=== PATIENT | female | born 1990 | race Caucasian/White ===

== ENCOUNTER → 2017-04-14 | Outpatient (CLI) | payer OTHER ==
--- NOTE | 2017-04-14 17:35 | DIAGNOSTIC IMAGING REPORT ---
L FOOT MIN 3 VIEWS ROUTINE CLINICAL HISTORY: Left foot pain. COMPARISON: None. DISCUSSION: The bony mineralization is normal. No fractures or subluxations are visualized. There are no erosive or destructive changes. IMPRESSION: Unremarkable conventional radiographic evaluation of the left foot. Electronically signed by: Stvee Peng M.D. 04/14/2017 5:33 PM Dictated Date/Time: 04/14/2017 5:33 PM
== END | disposition home or self-care (01) ==
LOC: C.RAD 17:02
PROVIDERS: ATTEND Student in an Organized Health Care Education/Training Program
DX: M79.672 Pain in left foot (principal)

== ENCOUNTER → 2017-07-07 | Outpatient (CLI) | payer OTHER | END | disposition home or self-care (01) | LOC: C.PAPS 14:09 | PROVIDERS: ATTEND Physician Assistant | DX: Z01.419 Encounter for gynecological examination (general) (routine) without abnormal findings (principal) ==

== ENCOUNTER 2023-01-12 01:56 | Inpatient (IN) ==
[2023-01-12] MEDS ORDERED: ONDANSETRON INJ 2 MG/ML 2 ML VIAL IV PRN ×2 (03:18→10:26)
[2023-01-12] MEDS: LACTATED RINGER'S 1,000 ML IV PRN ×3 (03:45→14:34)
[2023-01-12] MEDS ORDERED: LIDOCAINE 1% LOCAL 20 ML VIAL INFIL PRN (07:58)
[2023-01-12] MEDS ORDERED: OXYTOCIN 30 UNITS/500 ML BAG IV PRN ×3 (07:58→18:33)
[2023-01-12 08:34] LABS: Hematocrit (blood only) 32.8 % (37.0-47.0); Hemoglobin 11.4 g/dl (12.0-16.0); Mean Corpuscular Hemoglobin 31.1 pg (25.0-34.0); Mean Corpuscular Hgb Conc 34.8 g/dL (32.0-36.0); Mean Corpuscular Volume 89.4 fL (80.0-100.0); Mean Platelet Volume 10.5 fL (9.4-12.4); Platelet Count 177 K/uL (130-400); RDW Coefficient of Variation 13.5 % (11.5-14.5); RDW Standard Deviation 44.5 fL (36.4-46.3); Red Blood Count 3.67 M/uL (4.20-5.40); White Blood Count 12.18 K/ul (4.8-10.8)
--- NOTE | 2023-01-12 09:25 | Labor Progress Brief Note ---
Date of Service January 12, 2023 Assessment & Plan (1) : Plan: Met pt and family Reviewed PMH, PSH. PNC with pt FHR; CAT1 Ctx. Q 7min VE by Nurse /-2 As per nurse, pt tolerated pelvic exam poorly Plan Epidural analgesia labor augmentation AROM Pt agrees with Plan Results & Data Vital Signs (Past 12 Hours) Vital Signs Temp Pulse Resp BP 01/12/23 07:15 36.7 C 18 01/12/23 02:37 37 C 103 H 24 117/74 01/12/23 07:08 100 H 01/12/23 07:08 114/72 01/12/23 02:14 37.0 C 103 H 24 117/74
[2023-01-12] MEDS ORDERED: BUPIVACAINE 0.25% PF 30 ML VIAL ONE (09:26)
[2023-01-12] MEDS ORDERED: ePHEDrine sulfate 50 MG/ML AMP ONE (09:26)
[2023-01-12] MEDS ORDERED: fentaNYL citrate PF 100 MCG/2 ML VIAL ONE (09:26)
[2023-01-12] MEDS ORDERED: SODIUM CHLORIDE 0.9% PF INJ 10 ML VIAL ONE (09:26)
[2023-01-12] MEDS ORDERED: fentaNYL 2MCG/ML ROPIVACAINE 1.25MG/ML 100 ML BAG EPI ONE (09:27)
[2023-01-12] MEDS ORDERED: LIDOCAINE 2%/EPINEPHRINE 1:200,000 20 ML PF ONE (09:27)
--- NOTE | 2023-01-12 09:55 | Anesthesiology Consultation ---
Date of Service January 12, 2023 Assessment & Plan Chart Review Chart Review: Acceptable Risk for Labor Epidural Consults Requested none ASA ASA2 Proposed Anesthesia Anesthesia Type: Labor Epidural Risk / Benefits Reviewed With: PT / POA / Parent / Guardian, Accepts Plan and Informed Consent Obtained History Height/Weight Height: 5 ft 2 in Weight: 63.957 kg Allergies Allergy/AdvReac Type Severity Reaction Status Date / Time amoxicillin [From Augmentin] AdvReac Intermediate NAUSEA/VOMI Verified 08/01/21 16:13 TING clavulanic acid AdvReac Intermediate NAUSEA/VOMI Verified 08/01/21 16:13 [From Augmentin] TING Medications Home Medications Medication Instructions Recorded Confirmed Last Taken doxylamine succinate 25 mg tablet 25 mg PO HS PRN Sleep 12/19/22 12/19/22 12/18/22 (Unisom (doxylamine)) famotidine 20 mg tablet (Pepcid) 20 mg PO DAILY 12/19/22 01/12/23 01/11/23 2200 vits no.124-ferrous fum 1 tab PO DAILY 12/19/22 01/12/23 01/05/23 08:00 27 mg iron-folic acid 800 mcg tablet ( Vitamin) Iron (ferrous sulfate) 01/12/23 01/05/23 1400 Active Medications Generic Name Dose Route Start Last Admin Trade Name Freq PRN Reason Stop Dose Admin Lactated Ringer's 1,000 mls @ 125 mls/hr 01/12/23 03:18 01/12/23 09:47 Lr IV 02/11/23 03:17 999 mls/hr .Q8H PRN Administration L&D Protocol Protocol Past Medical History Medical History Anemia Migraine with aura Ocular migarines - haven't had any issues in years Raynaud disease Vasovagal syncope Patient has had 3 episode where she has passed out. Exercise / Class Metabolic Activity II 4-5 Yardwork/Stairs/Walk up hill Past Family History Family History Father Hypertension Mother Hypothyroid Grandmother (Paternal) Breast cancer Denies family history of Ovarian cancer Prostate cancer Myocardial infarction Colorectal cancer Past Surgical History Surgical History H/O hernia repair As a baby [place] teeth removed Past Anesthesia History No Hx of Anesthesia Complications and No Family Hx of Anesthesia Complications History of PONV No Hx of PONV and No Hx of Motion Sickness Social History Smoking Status: Never smoker Do You Dip or Chew Tobacco: No Hx Alcohol Use: Yes Hx Substance Use: No substance use type: does not use Physical Exam Vital Signs Last Vital Signs Temp 98.1 F 01/12/23 07:15 Pulse 93 H 01/12/23 09:49 Resp 18 01/12/23 07:15 BP 114/72 01/12/23 07:08 Pulse Ox 100 01/12/23 09:49 ENMT Mouth: no dentition abnormality Thyromental Distance: > or= 3.5 Finger Breadths Mallampati Class: II Neck normal visual inspection Respiratory normal respiratory effort Auscultation: lungs clear to auscultation bilaterally Cardiovascular Rate/Rhythm: regular rate and regular rhythm Testing Laboratory Results 01/12/23 08:12
[2023-01-12] MEDS ORDERED: fentaNYL citrate PF 100 MCG/2 ML VIAL EPI PRN (10:26)
[2023-01-12] MEDS ORDERED: SODIUM CHLORIDE 0.9% PF INJ 10 ML VIAL EPI STA (10:26)
[2023-01-12] MEDS ORDERED: diphenhydrAMINE 50 MG/ML VIAL IV PRN (10:26)
[2023-01-12] MEDS ORDERED: fentaNYL 2MCG/ML ROPIVACAINE 1.25MG/ML 100 ML BAG EPI PRN (10:26)
[2023-01-12] MEDS ORDERED: SODIUM CHLORIDE 0.9% PF INJ 10 ML VIAL EPI PRN (10:26)
[2023-01-12] MEDS ORDERED: BUPIVACAINE 0.25% PF 30 ML VIAL EPI PRN (10:26)
[2023-01-12] MEDS ORDERED: NALOXONE HCL 1 MG in SODIUM CHLORIDE 0.9% 1000ML 1,000 ML IV PRN (10:26)
[2023-01-12] MEDS ORDERED: BUPIVACAINE 0.25% PF 30 ML VIAL EPI STA (10:26)
[2023-01-12] MEDS ORDERED: NALBUPHINE HCL INJ 10 MG/ML AMP IV PRN (10:26)
[2023-01-12] MEDS ORDERED: NALOXONE HCL 0.4 MG/1 ML VIAL/CARP IV PRN (10:26)
[2023-01-12] MEDS ORDERED: LIDOCAINE 2%/EPINEPHRINE 1:200,000 20 ML PF EPI STA (10:26)
[2023-01-12] MEDS ORDERED: ROPIVACAINE 0.5% PF 5 MG/ML 20 ML VIAL EPI PRN (10:26)
[2023-01-12] MEDS ORDERED: ePHEDrine sulfate 50 MG/ML AMP IV PRN (10:26)
[2023-01-12] MEDS ORDERED: fentaNYL citrate PF 100 MCG/2 ML VIAL EPI STA (10:26)
[2023-01-12] MEDS ORDERED: LIDOCAINE 2% MPF LOCAL 5 ML VIAL EPI PRN (10:26)
[2023-01-12] MEDS ORDERED: CALCIUM CARBONATE 500 MG CHEWABLE TAB PO PRN (13:49)
[2023-01-12] MEDS ORDERED: CALCIUM CARBONATE 500 MG CHEWABLE TAB ONE (13:51)
[2023-01-12] MEDS ORDERED: BENZOCAINE 20% AER SPR 82.5 GM CAN EXT PRN (18:33)
[2023-01-12] MEDS ORDERED: HYDROCORTISONE ACETATE 25 MG SUPP PR PRN (18:33)
[2023-01-12] MEDS ORDERED: DIPHTHERIA/TETANUS/PERTUSSIS Vaccine (Tdap, Age 7+yrs) 0.5mL SYR/VL IM ONE (18:33)
[2023-01-12] MEDS ORDERED: bisacodyL 10 MG SUPP PR PRN (18:33)
--- NOTE | 2023-01-12 18:41 | Anesthesia Procedure Note ---
Date of Service January 12, 2023 Anesthesia Post Epidural Note Vital Signs Vital Signs: Temp Pulse Resp BP Pulse Ox 99.0 F 89 22 95/65 L 100 01/12/23 17:00 01/12/23 18:34 01/12/23 17:30 01/12/23 18:34 01/12/23 18:29 Pain Intensity Abdomen: Pain Intensity: 6 Notes Mental Status: alert / awake / arousable and participated in evaluation Nausea / Vomiting: adequately controlled Pain: adequately controlled Airway Patency, RR, SpO2: stable & adequate BP & HR: stable & adequate Hydration State: stable & adequate Neuraxial Anesthesia: was administered and sensory block is resolving Anesthetic Complications: no major complications apparent and Pt Satisfied with anesthetic care Epidural: Removed without complications and With tip intact
--- NOTE | 2023-01-12 18:46 | Delivery Summary ---
Vaginal Delivery Summary Date of Service January 12, 2023 Vaginal Delivery Summary DELIVERY NOTE Patient delivered a live male in left occiput anterior presentation there was no nuchal cord . Infant was delivered and placed on mother's abdomen. Delayed cord clamping was performed. Cord blood is obtained Meconium is present at SROM Placenta is spontaneously delivered. Placenta appears grossly normal and has 3 vessel cord Inspection of the perineum showed a second-degree midline laceration. Laceration is repaired in layers with 2-0 Vicryl in layers Rectal exam post repair showed good sphincter tone no sutures palpated in the rectum. Estimated blood loss is 450 cc per Infants weight and scores are in the pediatric record Mother and baby are stable in in the recovery
[2023-01-12] MEDS: IBUPROFEN 600 MG TAB PO PRN (20:37)
[2023-01-12] MEDS: DOCUSATE SODIUM 100 MG CAP PO SCH (20:38)
[2023-01-13] MEDS: IBUPROFEN 600 MG TAB PO PRN ×4 (02:24→20:33)
[2023-01-13 06:49] LABS: Hematocrit (blood only) 28.4 % (37.0-47.0); Mean Corpuscular Hemoglobin 31.2 pg (25.0-34.0); Mean Corpuscular Hgb Conc 35.2 g/dL (32.0-36.0); Mean Corpuscular Volume 88.5 fL (80.0-100.0); Mean Platelet Volume 10.6 fL (9.4-12.4); Platelet Count 161 K/uL (130-400); RDW Coefficient of Variation 13.6 % (11.5-14.5); RDW Standard Deviation 44.4 fL (36.4-46.3); Red Blood Count 3.21 M/uL (4.20-5.40); White Blood Count 14.17 K/ul (4.8-10.8)
--- NOTE | 2023-01-13 06:52 | Obstetrical Progress Note ---
Date of Service January 13, 2023 Assessment & Plan (1) Normal course: PPD #1 pt doing well No complaints D/c home tomorrow Results & Data Vital Signs (Past 12 Hours) Vital Signs Temp Pulse Pulse Resp BP BP 01/13/23 05:00 36.6 C 84 16 102/65 01/12/23 23:47 36.6 C 104 H 18 119/72 01/12/23 20:45 37.2 C 95 H 18 112/62 01/12/23 20:30 37.2 C 18 01/12/23 20:00 18 01/12/23 19:30 16 01/12/23 19:15 18 01/12/23 19:00 37.4 C 18 01/12/23 20:30 95 H 01/12/23 20:30 112/62 01/12/23 20:15 103 H 01/12/23 20:15 108/59 L 01/12/23 20:00 96 H 01/12/23 20:00 107/61 01/12/23 19:30 90 01/12/23 19:30 118/65 01/12/23 19:16 80 01/12/23 19:16 121/69 01/12/23 19:01 95 H 01/12/23 19:01 98/60 L
[2023-01-13] MEDS: ACETAMINOPHEN 325 MG TAB PO PRN ×2 (07:45→15:50)
[2023-01-13] MEDS: DOCUSATE SODIUM 100 MG CAP PO SCH ×2 (07:45→20:49)
[2023-01-13] MEDS: PRENATAL VITAMIN 1 TAB PO SCH (07:45)
[2023-01-13] MEDS ORDERED: bisacodyL 5 MG TABEC PO SCH (20:00)
[2023-01-14] MEDS: IBUPROFEN 600 MG TAB PO PRN ×2 (08:07→15:36)
[2023-01-14] MEDS: DOCUSATE SODIUM 100 MG CAP PO SCH (08:07)
[2023-01-14] MEDS: PRENATAL VITAMIN 1 TAB PO SCH (08:07)
[2023-01-14 10:11] LABS: Hematocrit (blood only) 29.4 % (37.0-47.0); Hemoglobin 9.9 g/dl (12.0-16.0)
--- NOTE | 2023-01-14 10:12 | Obstetrical Progress Note ---
Date of Service January 14, 2023 Subjective Ambulation: ambulating normally Physical Exam Constitutional WD/WN, vitals as above Gastrointestinal (Abdomen) Inspection/Auscultation: abdomen normal to inspection Musculoskeletal Extremities: extremities normal to inspection Skin no rashes, warm and dry Neurologic patellar DTR's 2+ bilat, sensation intact Psychiatric A+Ox3, euthymic affect Results & Data Vital Signs (Past 12 Hours) Vital Signs Temp Pulse Resp BP Pulse Ox O2 Del Method 01/14/23 07:40 36.5 C 76 16 125/83 Room Air 01/13/23 23:05 36.7 C 87 16 107/73 96 Room Air Laboratory Results 01/12/23 01/12/23 01/13/23 08:12 Unknown 05:57 WBC 12.18 H 14.17 H RBC 3.67 L 3.21 L Hgb 11.4 L 10.0 L Hct 32.8 L 28.4 L MCV 89.4 88.5 MCH 31.1 31.2 MCHC 34.8 35.2 RDW Std Deviation 44.5 44.4 RDW Coeff of [place] 13.5 13.6 Plt Count 177 161 MPV 10.5 10.6 SARS-CoV-2, RNA, NAAT NEGATIVE 01/14/23 09:41 WBC RBC Hgb 9.9 L Hct 29.4 L MCV MCH MCHC RDW Std Deviation RDW Coeff of [place] Plt Count MPV SARS-CoV-2, RNA, NAAT
== END 2023-01-14 16:30 | disposition home or self-care (01) | DRG 807 ==
LOC: OPB 01:56 → 4S1 02:00 → 4E2 21:19